=== PATIENT | female | born 1985 | race Hispanic/Latino ===

== ENCOUNTER 2019-06-14 13:51 | Emergency (ER) | payer OTHER ==
--- OUTSIDE RECORDS SUMMARY | 2019-06-14 13:54 | XMS REPORT ---
:1985 Author Organization [facility] Address Unavailable , Allergies, Adverse Reactions, Alerts Allergy Name Reaction Description Start Date Severity Status Provider No Known Allergies Crissy Herrera RN Conditions or Problems Problem Problem Onset Status Entry Provider Comment Standard Annotate Name Code Date Date Description Anxiety 300.00 Active Crissy Anxiety state, Sharon unspecified RN Hematuria 599.70 Active Crissy Hematuria, Sharon unspecified RN IUD check V25.42 Active Crissy Encounter for string not Sharon surveillance of palpable RN intrauterine contraceptive device Std V74.5 Active Crissy Screening screening Sharon examination for RN venereal disease Medication List Medication Instructions Start Stop Generic NDC Status Provider Patient Date Date Name Instruction XANAX XANAX Active Crissy Herrera RN Active Vital Signs Date Name Value Unit Range Description blood pressure, diastolic 69 mm[Hg] BP rollins blood pressure, systolic 113 mm[Hg] BP sys height E&M 69 [in_us] Bdy height pulse rate E&M 107 /min Heart rate temperature, second reading 101.7 [degF] Body temperature temperature E&M 99.2 [degF] Body temperature weight E&M 173.13 [lb_av] Weight Measured Diagnostic Results Date Name Value Unit Range Description Nurse Visit: Nurse Visit - [facility] - Urinalysis nitrite, urine, semiquantitative negative urobilinogen, urine, semiquantitative (dipstick) negative specific gravity, urine 1.020 pH, urine, semiquantitative 5.0 bilirubin, urine negative Nurse Visit: Nurse Visit - [facility] - Chemistry HIV rapid test results negative Nurse Visit: Nurse Visit - [facility] - Urinalysis leukocyte esterase, urine, by dipstick trace appearance, urine hazy Lab Report: Ct, Ng, Trich vag by RUTH, Ct/GC RUTH, Pharyngeal - Lab chlamydia DNA probe Negative Negative Lab Report: Ct, Ng, Trich vag by RUTH, Ct/GC RUTH, Pharyngeal - Microbiology Neisseria gonorrhoeae DNA probe Negative Negative Nurse Visit: Nurse Visit - [facility] - Urinalysis protein, urine, semiquantitative (dipstick) trace blood in urine (hemoglobin) by dipstick 2+ Nurse Visit: Nurse Visit - [facility] - Chemistry beta HCG, urine, semiquantitative negative Nurse Visit: Nurse Visit - [facility] - Urinalysis glucose, urine, semiquantitative negative Lab Report: Ct, Ng, Trich vag by RUTH, Ct/GC RUTH, Pharyngeal - Microbiology Neisseria gonorrhoeae, throat culture Negative Negative Nurse Visit: Nurse Visit - [facility] - Urinalysis urine color yellow ketones, urine, by test strip negative Encounters Date Encounter Provider Code Facility Est Patient Nurse - Crissy Herrera RN CPT-[id number] [facility] – [place] Adult Medicine 11:46:55 CDT Only Visit - [id number] Procedures Code Procedure Name Date Entry Date Standard Description CPT-07584 Urinalysis - Dip only - In House 12:20:07 CDT CPT-43450 Urinalysis - - In House 11:46:55 CDT CPT-63084 Alere Determine HIV-1/2 Ag/Ab Combo - In House 11:46:55 CDT
--- OUTSIDE RECORDS SUMMARY | 2019-06-14 13:54 | XMS REPORT ---
:1985 Author Organization [facility] Address [address] [place] [address] [place] [id number] Care Team Providers Name Role Phone Unavailable Unavailable Unavailable Problems This patient has no known problems. Allergies, Adverse Reactions, Alerts This patient has no known allergies or adverse reactions. Medications This patient has no known medications.
[2019-06-14 15:04] LABS: Urine Blood NEGATIVE (NEG); Urine Glucose NEGATIVE (NEG); Urine Protein NEGATIVE (NEG); Urine Specific Gravity 1.025 (1.005-1.030); Urine pH 7.5 (5.0-7.0)
--- NOTE | 2019-06-14 15:44 | EDPHYS ---
Physician Documentation [facility] Name: Peri Santamaria Age: 33 yrs Sex: Female : 1985 Arrival Date: 06/14/2019 Time: 13:56 Bed 8 Private MD: ED Physician Ronald Story HPI: 06/14 15:38 This 33 yrs old Female presents to ER via Ambulatory with complaints of rn Abdominal Cramping. 15:38 The patient presents to the emergency department with abdominal pain, of the left lower rn quadrant. 15:38 The patient presents with abdominal pain in the left lower quadrant. Onset: The rn symptoms/episode began/occurred today. The symptoms do not radiate. Associated signs and symptoms: none. Pertinent negatives: nausea and vomiting, blood in stools, chest pain, constipation, diarrhea, dysuria, fever, hematuria, vaginal discharge, vomiting blood. The symptoms are described as intermittent, sharp. The symptoms are described as crampy. Modifying factors: The symptoms are alleviated by nothing, the symptoms are aggravated by nothing. Severity of pain: At its worst the pain was moderate in the emergency department the pain is unchanged. The patient has experienced similar episodes in the past. Reports left pelvic pain, intermittent, began today, is about to start period and took preg test at home that was neg, googled pelvic pain and found ectopic information, got scared and came in.. 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 - Social history:: Smoking status: . - Ebola Screening: : Patient denies travel to an Ebola-affected area in the 21 days before illness onset. - Family history:: not pertinent. - Hospitalizations: : No recent hospitalization is reported. ROS: 15:38 Constitutional: Negative for fever, chills, and weight loss, Eyes: Negative for injury, rn pain, redness, and discharge, Cardiovascular: Negative for chest pain, palpitations, and edema, Respiratory: Negative for shortness of breath, cough, wheezing, and pleuritic chest pain, Abdomen/GI: Negative for nausea, vomiting, diarrhea, and constipation, MS/Extremity: Negative for injury and deformity, Skin: Negative for injury, rash, and discoloration, Neuro: Negative for headache, weakness, numbness, tingling, and seizure. Exam: 15:38 Constitutional: This is a well developed, well nourished patient who is awake, alert, rn and in no acute distress. Ambulatory to room without difficulty or assistance. Head/Face: Normocephalic, atraumatic. ENT: MMM Cardiovascular: Regular rate and rhythm. No pulse deficits. Abdomen/GI: soft, mild left pelvic pain, no rebound Skin: Warm, dry with normal turgor. Normal color with no rashes, no lesions, and no evidence of cellulitis. MS/ Extremity: Pulses equal, no cyanosis. Neurovascular intact. Full, normal range of motion. Equal circumference. Neuro: Awake and alert, GCS 15, oriented to person, place, time, and situation. Cranial nerves II-XII grossly intact. Motor strength 5/5 in all extremities. Sensory grossly intact. Cerebellar exam normal. Normal gait. Vital Signs: 14:14 BP 122 / 85; Pulse 71; Resp 18; Temp 97.9(O); Pulse Ox 100% on R/A; Weight 88.9 kg (R); tw2 Height 5 ft. 5 in. (165.10 cm) (R); Pain 7/10; 15:44 BP 114 / 71; Pulse 65; Resp 17; Pulse Ox 100% on R/A; tw2 14:14 Body Mass Index 32.62 (88.90 kg, 165.10 cm) tw2 MDM: 14:08 Patient medically screened. rn 15:38 Differential diagnosis: non-specific abd pain, Ovarian Torsion, Ureterolithiasis, rn urinary tract infection. Data reviewed: vital signs, nurses notes, lab test result(s), radiologic studies, ultrasound, and as a result, I will discharge patient. Counseling: I had a detailed discussion with the patient and/or guardian regarding: the historical points, exam findings, and any diagnostic results supporting the discharge/admit diagnosis, lab results, radiology results, the need for outpatient follow up, to return to the emergency department if symptoms worsen or persist or if there are any questions or concerns that arise at home. Response to treatment: the patient's symptoms have mildly improved after treatment, and as a result, I will discharge patient. Special discussion: I discussed with the patient/guardian in detail that at this point there is no indication for admission to the hospital. It is understood, however, that if the symptoms persist or worsen the patient needs to return immediately for re-evaluation. ED course: Neg preg and no torsion on ultrasound. 06/14 14:25 Order name: Urine Dipstick--Ancillary (enter results); Complete Time: 15:15 06/14 14:25 Order name: Urine --Ancillary (enter results); Complete Time: 15:15 06/14 14:15 Order name: Urine Test (obtain specimen); Complete Time: 14:24 rn 06/14 14:15 Order name: Urine Dipstick-Ancillary (obtain specimen); Complete Time: 14:24 rn 06/14 15:29 Order name: Transvaginal Study Probe EDTX Administered Medications: No medications were administered Disposition: 06/14/19 15:43 Discharged to Home. Impression: Abdominal and pelvic pain. - Condition is Stable. - Discharge Instructions: Abdominal Pain, Adult. - Medication Reconciliation Form, Thank You Letter, Antibiotic Education, Prescription Opioid Use, Work release form form. - Follow up: Private Physician; When: As needed; Reason: Recheck today's complaints, Re-evaluation by your physician. - Problem is new. - Symptoms have improved. Signatures: Dispatcher [employer] [facility] Ronald Story MD MD rn Wise, Tara, RN RN tw2 Corrections: (The following items were deleted from the chart) 15:29 14:26 Pelvis Complete+US.RAD.BRZ ordered. [facility] 15:52 15:43 06/14/2019 15:43 Discharged to Home. Impression: Abdominal and pelvic pain. tw2 Condition is Stable. Forms are Medication Reconciliation Form, Thank You Letter, Antibiotic Education, Prescription Opioid Use. Follow up: Private Physician; When: As needed; Reason: Recheck today's complaints, Re-evaluation by your physician. Problem is new. Symptoms have improved. rn
--- NOTE | 2019-06-14 15:44 | ER ---
Nurse's Notes [facility] Name: Peri Santamaria Age: 33 yrs Sex: Female : 1985 Arrival Date: 06/14/2019 Time: 13:56 Bed 8 Private MD: Diagnosis: Abdominal and pelvic pain Presentation: 06/14 14:12 Presenting complaint: Patient states: i have had cramping for like 2 days, i am due to tw2 start my period but i want to make sure its not a tubal after i googled it. LMP 05/17/19. Transition of care: patient was not received from another setting of care. Onset of symptoms was June 14, 2019. Risk Assessment: Do you want to hurt yourself or someone else? Patient reports no desire to harm self or others. Initial Sepsis Screen: Does the patient meet any 2 criteria? No. Patient's initial sepsis screen is negative. Does the patient have a suspected source of infection? No. Patient's initial sepsis screen is negative. Care prior to arrival: None. 14:12 Method Of Arrival: Ambulatory tw2 14:12 Acuity: ALEJANDRO 3 tw2 14:13 Note pt sent to the restroom with urine collection cup at this time. tw2 Triage Assessment: 14:14 General: Appears in no apparent distress. Behavior is calm, cooperative, appropriate tw2 for age. Pain: Complains of pain in left lower quadrant. GI: Reports cramping. 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 - Social history:: Smoking status: . - Ebola Screening: : Patient denies travel to an Ebola-affected area in the 21 days before illness onset. - Family history:: not pertinent. - Hospitalizations: : No recent hospitalization is reported. Screenin:19 Abuse screen: Denies threats or abuse. Nutritional screening: No deficits noted. tw2 Tuberculosis screening: No symptoms or risk factors identified. Fall Risk None identified. Assessment: 14:07 General: Appears in no apparent distress. Behavior is calm, cooperative, appropriate tw2 for age. Neuro: Level of Consciousness is awake, alert, obeys commands, Oriented to person, place, time, situation. Cardiovascular: Heart tones S1 S2 Patient's skin is warm and dry. Respiratory: Airway is patent Respiratory effort is even, unlabored, Respiratory pattern is regular, symmetrical, Breath sounds are clear bilaterally. GI: Bowel sounds present X 4 quads. Abd is soft X 4 quads Reports lower abdominal pain, cramping, Patient currently denies diarrhea, nausea, vomiting. : No signs and/or symptoms were reported regarding the genitourinary system. EENT: No signs and/or symptoms were reported regarding the EENT system. Derm: No signs and/or symptoms reported regarding the dermatologic system. Musculoskeletal: Range of motion: intact in all extremities. 15:20 Reassessment: pt in US at this time. unavailable for vs at this time. tw2 15:44 Reassessment: Patient appears in no apparent distress at this time. No changes from tw2 previously documented assessment. Patient and/or family updated on plan of care and expected duration. Pain level reassessed. Patient is alert, oriented x 3, equal unlabored respirations, skin warm/dry/pink. 15:52 Reassessment: Patient appears in no apparent distress at this time. No changes from tw2 previously documented assessment. Patient and/or family updated on plan of care and expected duration. Pain level reassessed. Patient is alert, oriented x 3, equal unlabored respirations, skin warm/dry/pink. Vital Signs: 14:14 BP 122 / 85; Pulse 71; Resp 18; Temp 97.9(O); Pulse Ox 100% on R/A; Weight 88.9 kg (R); tw2 Height 5 ft. 5 in. (165.10 cm) (R); Pain 7/10; 15:44 BP 114 / 71; Pulse 65; Resp 17; Pulse Ox 100% on R/A; tw2 14:14 Body Mass Index 32.62 (88.90 kg, 165.10 cm) tw2 ED Course: 13:56 Patient arrived in ED. mr 14:08 Ronald Story MD is Attending Physician. rn 14:09 Thapa, Luis A, RN is Primary Nurse. em 14:12 Madhavi Arrington, BOY is Primary Nurse. tw2 14:12 Bed in low position. Call light in reach. tw2 14:13 Triage completed. tw2 14:14 Arm band placed on. tw2 15:32 Transvaginal Study Probe In Process Unspecified. EDMS 15:51 No provider procedures requiring assistance completed. IV discontinued, intact, tw2 bleeding controlled, No redness/swelling at site. Pressure dressing applied. Administered Medications: No medications were administered Outcome: 15:43 Discharge ordered by . rn 15:51 Discharged to home ambulatory. tw2 15:51 Condition: stable 15:51 Discharge instructions given to patient, Instructed on discharge instructions, follow up and referral plans. Demonstrated understanding of instructions, follow-up care, medications. 15:52 Patient left the ED. tw2 Signatures: Dispatcher [employer] [facility] Juanis York Luis A Thapa, BOY BRUNSON Ronald Story MD MD rn Wise, Tara, RN RN tw2
--- NOTE | 2019-06-14 15:45 | RAD REPORT ---
EXAM DESCRIPTION: US - Transvaginal Study Probe - 06/14/2019 3:31 pm CLINICAL HISTORY: rule out ovarian torsion Pelvic pain. COMPARISON: No comparisons FINDINGS: The uterus is normal in size, shape and echotexture. The uterus measures 10.0 x 5.8 x 5.3 cm. The endometrial stripe measures 4 mm, normal. Both ovaries are normal in size, shape and echotexture. The right ovary measures 3.3 x 2.4 x 3.1 cm. The left ovary measures 2.2 x 2.0 x 1.9 cm. No ovarian or parovarian lesions. No adnexal masses. Normal Doppler blood flow was demonstrated to both ovaries. No significant pelvic ascites. IMPRESSION: Unremarkable study.
[2019-06-14 15:58] VITALS: TEMP 97.9; O2SAT 100
[2019-06-14 15:59] VITALS: BP 114/71
== END 2019-06-14 15:52 | disposition home or self-care (01) ==
LOC: ER 13:51
DX: R10.2 Pelvic and perineal pain (principal); F41.9 Anxiety disorder, unspecified; Z98.82 Breast implant status
CPT/HCPCS: 76830; 81003; 81025; 99283